=== PATIENT | female | born 1945 | race Caucasian/White ===

== ENCOUNTER → 2023-08-03 10:58 | Outpatient (REF) | payer MEDICARE, OTHER, SELFPAY | LOC: WDC 10:58 | PROVIDERS: ATTENDING PHYSICIAN Nurse Practitioner Adult Health | DX: Z12.31 Encounter for screening mammogram for malignant neoplasm of breast (principal) | CPT/HCPCS: 77063; 77067 ==

== ENCOUNTER → 2023-12-11 08:14 | Outpatient (REF) | payer MEDICARE, OTHER, SELFPAY ==
[2023-12-11 09:13] LABS: % Basophils 0.5 % (0-2); % Eosinophils 4.2 % (0-6); % Immature Granulocytes 0.4 % (0-0.5); % Lymphocytes 19.8 % (20.5-51.1); % Monocytes 11.8 % (1.7-9.3); % Neutrophils 63.3 % (42.2-75.2); Absolute Eosinophils 0.2 10^3/uL (0-0.7); Absolute Lymphocytes 1.1 10^3/uL (1.2-3.4); Absolute Monocytes 0.7 10^3/uL (0.1-0.6); Absolute Neutrophils 3.6 10^3/uL (1.4-6.5); Hemoglobin 12.5 g/dL (12.0-16.0); Mean Corp Hgb Conc. 32.9 g/dL (33.0-37.0); Mean Corpuscular Hgb 28.6 pg (27.0-31.0); Mean Platelet Volume 9.5 fL (7.4-10.4); Nucleated Red Blood Cells % 0 %; Platelet Count 195 10^3/uL (130-400); Red Blood Cell Count 4.37 10^6/uL (4.20-5.40); Red Cell Dist. Width 14.2 % (11.5-14.5); White Blood Cell Count 5.7 10^3/uL (4.8-10.8)
[2023-12-11 09:41] LABS: ALT (SGPT) 18 U/L (0-35); AST (SGOT) 31 U/L (14-36); Albumin 4.3 g/dl (3.5-5.0); Alkaline Phosphatase 109 U/L (38-126); Blood Urea Nitrogen 12 mg/dl (7-17); Calcium 9.7 mg/dl (8.4-10.2); Carbon Dioxide 28 mmol/L (22-30); Chloride 107 mmol/L (98-107); Glucose 102 mg/dl (70-99); HDL Cholesterol 64 mg/dl; LDL Cholesterol, Calculated 60 mg/dl; Sodium 142 mmol/L (135-145); Total Bilirubin 0.7 mg/dl (0.2-1.3); Total Cholesterol 141 mg/dl (50-199); Total Protein 6.6 g/dl (6.3-8.2); Triglyceride 88 mg/dl (10-149); Very Low Density Lipoprotein 17 mg/dl (0-30); eGFR > 60.00
[2023-12-11 10:09] LABS: TSH Reflex To Free T4 1.08 uIU/ml (0.47-4.68)
[2023-12-11 10:47] LABS: Glycohemoglobin (HgbA1c) 5.7 % (4.0-5.6)
== END ==
LOC: RCS 08:14
PROVIDERS: ATTENDING PHYSICIAN Internal Medicine; FAMILY PHYSICIAN Nurse Practitioner Adult Health
DX: I25.10 Atherosclerotic heart disease of native coronary artery without angina pectoris (principal); I35.1 Nonrheumatic aortic (valve) insufficiency; I34.0 Nonrheumatic mitral (valve) insufficiency; R60.0 Localized edema; R73.03 Prediabetes; E78.5 Hyperlipidemia, unspecified; Z79.899 Other long term (current) drug therapy; Z13.29 Encounter for screening for other suspected endocrine disorder
CPT/HCPCS: 36415; 80053; 80061; 83036; 84443; 85025; 93306

== ENCOUNTER → 2024-01-21 08:08 | Outpatient (REF) | payer MEDICARE, OTHER, SELFPAY | LOC: RAD 08:08 | PROVIDERS: ATTENDING PHYSICIAN Nurse Practitioner Adult Health | DX: M85.852 Other specified disorders of bone density and structure, left thigh (principal); Z78.0 Asymptomatic menopausal state | CPT/HCPCS: 77080 ==

== ENCOUNTER → 2024-03-26 12:28 | Outpatient (REF) | payer MEDICARE, OTHER, SELFPAY | LOC: WDC 12:28 | PROVIDERS: ATTENDING PHYSICIAN Surgery; FAMILY PHYSICIAN Nurse Practitioner Adult Health | DX: R92.2 Inconclusive mammogram (principal) | CPT/HCPCS: 76641 ==

== ENCOUNTER → 2024-06-13 09:04 | Outpatient (REF) | payer MEDICARE, OTHER, SELFPAY ==
[2024-06-13 09:39] LABS: % Basophils 0.7 % (0-2); % Eosinophils 2.4 % (0-6); % Immature Granulocytes 0.4 % (0-0.5); % Lymphocytes 15.1 % (20.5-51.1); % Neutrophils 75.4 % (42.2-75.2); Absolute Basophils 0.1 10^3/uL (0-0.2); Absolute Eosinophils 0.2 10^3/uL (0-0.7); Absolute Monocytes 0.4 10^3/uL (0.1-0.6); Absolute Neutrophils 5.1 10^3/uL (1.4-6.5); Hematocrit 38.1 % (37.0-47.0); Hemoglobin 12.6 g/dL (12.0-16.0); Mean Corp Hgb Conc. 33.1 g/dL (33.0-37.0); Mean Corpuscular Hgb 29.5 pg (27.0-31.0); Mean Corpuscular Volume 89.2 fL (81.0-99.0); Mean Platelet Volume 9.1 fL (7.4-10.4); Nucleated Red Blood Cells % 0 %; Platelet Count 231 10^3/uL (130-400); Red Blood Cell Count 4.27 10^6/uL (4.20-5.40); Red Cell Dist. Width 14.3 % (11.5-14.5); White Blood Cell Count 6.7 10^3/uL (4.8-10.8)
[2024-06-13 10:06] LABS: ALT (SGPT) 18 U/L (0-35); AST (SGOT) 27 U/L (14-36); Albumin 4.3 g/dl (3.5-5.0); Alkaline Phosphatase 117 U/L (38-126); Blood Urea Nitrogen 14 mg/dl (7-17); Calcium 9.9 mg/dl (8.4-10.2); Carbon Dioxide 27 mmol/L (22-30); Chloride 106 mmol/L (98-107); Glucose 104 mg/dl (70-99); HDL Cholesterol 77 mg/dl; LDL Cholesterol, Calculated 62 mg/dl; Potassium 4.7 mmol/L (3.5-5.1); Sodium 142 mmol/L (135-145); Total Bilirubin 0.6 mg/dl (0.2-1.3); Total Cholesterol 161 mg/dl (50-199); Total Protein 6.8 g/dl (6.3-8.2); Triglyceride 112 mg/dl (10-149); Very Low Density Lipoprotein 22 mg/dl (0-30); eGFR > 60.00
[2024-06-13 10:33] LABS: TSH Reflex To Free T4 1.02 uIU/ml (0.47-4.68)
[2024-06-14 10:31] LABS: Glycohemoglobin (HgbA1c) 5.8 % (4.0-5.6)
== END ==
LOC: REG 09:04
PROVIDERS: ATTENDING PHYSICIAN Nurse Practitioner Adult Health
DX: R73.03 Prediabetes (principal); M85.852 Other specified disorders of bone density and structure, left thigh; E78.5 Hyperlipidemia, unspecified; E55.9 Vitamin D deficiency, unspecified; Z00.00 Encounter for general adult medical examination without abnormal findings; E78.2 Mixed hyperlipidemia; Z13.29 Encounter for screening for other suspected endocrine disorder; R73.01 Impaired fasting glucose; Z79.899 Other long term (current) drug therapy
CPT/HCPCS: 36415; 80053; 80061; 82306; 83036; 84443; 85025

== ENCOUNTER → 2024-08-08 10:58 | Outpatient (REF) | payer MEDICARE, OTHER, SELFPAY | LOC: WDC 10:58 | PROVIDERS: ATTENDING PHYSICIAN Surgery; FAMILY PHYSICIAN Nurse Practitioner Adult Health | DX: Z12.31 Encounter for screening mammogram for malignant neoplasm of breast (principal) | CPT/HCPCS: 77063; 77067 ==

== ENCOUNTER → 2024-12-09 07:58 | Outpatient (REF) | payer MEDICARE, OTHER, SELFPAY ==
--- NOTE | 2024-12-09 09:10 | CARDSERVLU ---
Echocardiogram with Lumason completed after protocol screening completed. Allergies verified.
Patent IV site: _new start 22P RAC 1st attempt____
IV site flushed with 0.9% NaCl pre and post administration.
Diluted bolus method utilized to enhance visualization of ventricular browning.
Total volume given: ___3.5_ mL
site dcd at completion of test
Patient tolerated all procedures well without complications.
[2024-12-09 10:32] LABS: Glycohemoglobin (HgbA1c) 6.0 % (4.0-5.6)
[2024-12-09 11:02] LABS: Blood Urea Nitrogen 15 mg/dl (7-17); Calcium 9.6 mg/dl (8.4-10.2); Carbon Dioxide 27 mmol/L (22-30); Chloride 109 mmol/L (98-107); Glucose 98 mg/dl (70-99); Potassium 4.7 mmol/L (3.5-5.1); Sodium 141 mmol/L (135-145); eGFR > 60.00
== END ==
LOC: RCS 07:58
PROVIDERS: ATTENDING PHYSICIAN Internal Medicine; FAMILY PHYSICIAN Nurse Practitioner Adult Health; REFERRING PHYSICIAN Internal Medicine Critical Care Medicine
DX: I25.10 Atherosclerotic heart disease of native coronary artery without angina pectoris (principal); I35.1 Nonrheumatic aortic (valve) insufficiency; I34.0 Nonrheumatic mitral (valve) insufficiency; R06.09 Other forms of dyspnea; R05.3 Chronic cough; R06.00 Dyspnea, unspecified; R73.03 Prediabetes
CPT/HCPCS: 36415; 71046; 80048; 83036; 93306; Q9950

== ENCOUNTER 2024-12-16 19:57 | Emergency (ER) | payer MEDICARE, OTHER, SELFPAY ==
[2024-12-16] VITALS (8 sets, daily range): BP systolic 115–148; BP diastolic 49–108; BMI 29.8
[2024-12-16] MEDS: BENADRYL 50 MG PO (20:22)
[2024-12-16] MEDS: PEPCID 20 MG PO (20:22)
[2024-12-16] MEDS: DELTASONE 50 MG PO (21:04)
[2024-12-16] MEDS: ADRENALIN 0.3 MG IM (21:05)
--- NOTE | 2024-12-16 21:05 | ED.GENMED ---
History of Present Illness
General
Chief Complaint: Allergic Reaction
Source: patient and spouse
Exam Limitations: none
Time Seen by Provider: 12/16/24 20:49
Nursing documentation reviewed up to this point in time: agreed with
History of Present Illness
History of Present Illness:
79-year-old female itchy rash on her chest arms trunk swelling of the lower lip after doing some gardening, on amoxicillin recently not on an JANEL inhibitor rash looks like hives is itchy no shortness of breath no tongue swelling
As far as the amoxicillin she believes she has had it before, she finished it yesterday after a week for a toothache
Past History
Past History
ED Past Medical History: CAD, HTN, Hypercholesterolemia and VA
ED Past Surgical History: Cardiac (Cardiac stent) and Other (Lumpectomy)
Social History
Tobacco: Non-smoker
Alcohol: None
Drug: None
Personal:
Living: with family
Employment: Retired
Review of Systems
Review of Systems
All Other Systems: Not applicable
EENT: Reports mouth swelling (Lip swelling no tongue swelling)
Respiratory: Denies cough
Skin: Reports itching and rash
Phy Exam
Physical Exam
Physical Exam:
Physical Exam
General: no apparent distress, not acutely ill
Neck: Swelling of the left lower lip normal-sized tongue area under the tongue is soft
Heart: s1/s2 regular rate and rhythm, no murmur. equal radial pulses.
Lungs: no acute respiratory distress. clear bilaterally without wheeze
Neuro: alert and oriented. no focal neurological deficits
Skin: Diffuse silver dollar size blanching hives
Psychiatric: well kept. interactive and cooperative
Extremities: no edema.
Course
Orders/Labs/Results
Orders:
Orders
12/16/24 20:18
Diphenhydramine [Benadryl] 50 mg .ROUTE .STK-MED ONE
Famotidine [Pepcid] 20 mg .ROUTE .STK-MED ONE
12/16/24 20:21
Famotidine [Pepcid] 20 mg PO NOW STA
12/16/24 20:22
Diphenhydramine [Benadryl] 50 mg PO NOW STA
12/16/24 20:59
EPINEPHrine PF [Adrenalin] 0.3 mg IM NOW STA
EPINEPHrine PF [Adrenalin] 1 mg .ROUTE .STK-MED ONE
Prednisone [Deltasone] 50 mg .ROUTE .STK-MED ONE
Prednisone [Deltasone] 50 mg PO NOW STA
Vital Signs
Initial and Last Documented VS:
Initial Vital Signs
Temp Pulse Resp BP Pulse Ox
98.2 F 62 20 148/108 96
12/16/24 20:08 12/16/24 20:08 12/16/24 20:08 12/16/24 20:08 12/16/24 20:08
Last Documented Vital Signs
Temp Pulse Resp BP Pulse Ox
98.2 F 57 16 123/89 96
12/16/24 20:08 12/16/24 21:15 12/16/24 21:15 12/16/24 21:11 12/16/24 21:15
MDM/Problems Addressed
Differential Diagnosis Includes:
Allergic contact amoxicillin doubt angioedema by history physical --no JANEL inhibitor use
MDM/Problems Addressed:
Hives
Chronic conditions affecting care: HTN
Acute Exacerbation and/or Progression of Chronic Illness: HTN
*Pulse Oximetry
SaO2: 96
Oxygen Mode of Delivery: Room air
Patient hypoxic: no
*Aircraft De Icer Installer Interpretation
Rate: normal
Interpretation: normal
Heart Rate: 78
Rhythm: sinus
*Critical Care Note
Total Time (30-74mins, 75-104mins- exclusive of procedures): Not Applicable
Update Note
Update Note:
Symptoms appear allergic, will treat as such, will try to pin down timing of amoxicillin versus weeding in the garden
Not entirely clear what her inciting allergic reaction is from the more likely from gardening as opposed to amoxicillin
10 PM patient feeling better less swelling
Will give her the number for an application systems engineer to follow-up with
ED Attending Note
-
Portions of this chart may have been created with voice recognition software.� Occasional wrong word or��sound alike� substitutions may have occurred due to the inherent limitations of voice recognition software.
Discharge Plan
Departure
Patient Disposition: Home (Routine Discharge)
Date of Disposition: 12/16/24
Time of Disposition: 22:02
Patient with high blood pressure during this ER visit?: No
Condition: Good
Discharge Problem:
Acute urticaria
Instructions: Hives (DC)
Prescriptions:
No Action
atorvastatin 80 MG tablet
80 mg PO HS
acetaminophen 325 MG tablet
650 mg PO DAILYPRN PRN (Reason: MILD PAIN)
aspirin 81 MG tablet,delayed release (DR/EC)
81 mg PO HS
metoprolol succinate 25 MG tablet extended release 24 hr
25 mg PO HS
sertraline 50 MG tablet
50 mg PO HS
cholecalciferol (vitamin D3) 1,000 UNITS tablet
1,000 units PO HS
Referrals:
Paola Laurent CRNP [Family Provider, Internal Medicine] - Follow up in 1 week
Syd Root MD [[facility], Front Desk Worker] - Next open appointment
Activity Restrictions/Additional Instructions:
Follow-up with your primary care provider and Dr. Root application systems engineer to discuss your symptoms and any other further testing they may be needed to try to figure out what caused your reaction
Interventions
Interventions:
*Risk Screen - Suicide Last Done: 12/16/24 20:08
*General Assessment Last Done: 12/16/24 20:08
*Neglect/Abuse Screening Last Done: 12/16/24 20:08
*ED- Fall Risk Assessment Last Done: 12/16/24 20:08
*ED COVID-19 Vaccine History Last Done: 12/16/24 20:08
ED- Cardiac Assessment Last Done: 12/16/24 21:15
ED- Pulmonary Assessment Last Done: 12/16/24 21:15
ED-Skin Assessment Last Done: 12/16/24 21:15
Discharge Date and Time
Print Language: MAORI
== END 2024-12-16 23:02 | disposition home or self-care (01) ==
LOC: EMR 19:57
PROVIDERS: EMERGENCY PHYSICIAN Emergency Medicine; FAMILY PHYSICIAN Nurse Practitioner Adult Health
DX: L50.9 Urticaria, unspecified (principal); I25.10 Atherosclerotic heart disease of native coronary artery without angina pectoris; I10 Essential (primary) hypertension; E78.00 Pure hypercholesterolemia, unspecified; I25.2 Old myocardial infarction; Z95.5 Presence of coronary angioplasty implant and graft
CPT/HCPCS: 99282; 96372

== ENCOUNTER → 2025-02-25 09:08 | Outpatient (REF) | payer MEDICARE, OTHER, SELFPAY ==
[2025-02-25 11:04] LABS: ALT (SGPT) 17 U/L (0-35); AST (SGOT) 27 U/L (14-36); HDL Cholesterol 81 mg/dl; LDL Cholesterol, Calculated 48 mg/dl; Very Low Density Lipoprotein 16 mg/dl (0-30)
== END ==
LOC: REG 09:08
PROVIDERS: ATTENDING PHYSICIAN Internal Medicine; FAMILY PHYSICIAN Nurse Practitioner Adult Health
DX: I25.10 Atherosclerotic heart disease of native coronary artery without angina pectoris (principal)
CPT/HCPCS: 36415; 80061; 84450; 84460

== ENCOUNTER → 2025-03-06 10:48 | Outpatient (REF) | payer MEDICARE, OTHER, SELFPAY | LOC: RAD 10:48 | PROVIDERS: ATTENDING PHYSICIAN Nurse Practitioner Adult Health | DX: R80.9 Proteinuria, unspecified (principal); R82.998 Other abnormal findings in urine | CPT/HCPCS: 76770 ==

== ENCOUNTER → 2025-03-31 07:11 | Outpatient (REF) | payer MEDICARE, OTHER, SELFPAY ==
[2025-03-31 07:56] LABS: Hematocrit 37.3 % (37.0-47.0); Hemoglobin 12.0 g/dL (12.0-16.0); Mean Corp Hgb Conc. 32.2 g/dL (33.0-37.0); Mean Corpuscular Volume 89.7 fL (81.0-99.0); Platelet Count 194 10^3/uL (130-400); Red Cell Dist. Width 13.6 % (11.5-14.5)
[2025-03-31 08:04] LABS: Urine Character Clear (Clear)
[2025-03-31 08:23] LABS: Blood Urea Nitrogen 22 mg/dl (7-17); Calcium 9.2 mg/dl (8.4-10.2); Carbon Dioxide 27 mmol/L (22-30); Chloride 107 mmol/L (98-107); Glucose 109 mg/dl (70-99); Potassium 4.5 mmol/L (3.5-5.1); Sodium 141 mmol/L (135-145); eGFR 57.31
[2025-03-31 08:29] LABS: Urine Squamous Cell >30 /LPF (Few); Urine Urothelial Cell 21-25 /LPF (FEW)
[2025-03-31 08:30] LABS: Urine White Cell 26-30 /HPF (0-5)
[2025-03-31 08:33] LABS: Microalb - Urine Creatinine 75.400 mg/dl
[2025-03-31 08:37] LABS: Microalbumin, Random Urine 15.1 mg/dl (0.6-1.7)
[2025-04-02 02:04] LABS: Serine Protease-3, IgG 0 AU/mL (0-19)
[2025-04-02 02:30] LABS: ANA, IgG Reflex to HEp-2 None Detected (None Detected)
[2025-04-02 14:10] LABS: 24 Hour Urine Total Volume Random mL; Urine Collection Length Random hr
[2025-04-02 21:45] LABS: Albumin 3.94 g/dL (3.75-5.01); SPEP IFE Reflex Not Done; Total Protein-Electrophoresis 6.4 g/dL (6.3-8.2)
== END ==
LOC: REG 07:11
PROVIDERS: ATTENDING PHYSICIAN Specialist
DX: R80.9 Proteinuria, unspecified (principal)
CPT/HCPCS: 36415; 80048; 81003; 81015; 82043; 82570; 83516; 83520; 84155; 84156; 84165; 85027; 86038; 86160; 86335

== ENCOUNTER → 2025-05-01 09:07 | Outpatient (REF) | payer MEDICARE, OTHER, SELFPAY ==
[2025-05-01 10:14] LABS: Blood Urea Nitrogen 19 mg/dl (7-17); Glucose 95 mg/dl (70-99)
[2025-05-01 10:15] LABS: Calcium 9.5 mg/dl (8.4-10.2); Carbon Dioxide 27 mmol/L (22-30); Chloride 107 mmol/L (98-107); Potassium 4.6 mmol/L (3.5-5.1); Sodium 139 mmol/L (135-145); eGFR 46.05
[2025-05-01 10:56] LABS: Urine Character Slightly Cloudy (Clear)
[2025-05-01 13:24] LABS: Urine Red Blood Cell 0-2 /HPF (0-2)
== END ==
LOC: REG 09:07
PROVIDERS: ATTENDING PHYSICIAN Specialist; FAMILY PHYSICIAN Nurse Practitioner Adult Health
DX: R80.9 Proteinuria, unspecified (principal)
CPT/HCPCS: 36415; 80048; 81003; 81015